=== PATIENT | male | born 1960 | race Caucasian/White ===

== ENCOUNTER 2016-04-19 08:25 | Outpatient (CLI) | payer OTHER ==
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
== END 2016-04-19 23:00 | disposition home or self-care (01) ==
LOC: XR SRH 08:25
DX: M25.522 Pain in left elbow (principal)